=== PATIENT | male | born 1945 | race Caucasian/White ===

== ENCOUNTER → 2017-05-16 | Outpatient (CLI) | payer MEDICARE, OTHER ==
[2017-05-16 10:36] LABS: HEMATOCRIT 46.5 % (42.0-52.0); HEMOGLOBIN 14.8 g/dL (13.5-18.0); MEAN PLATELET VOLUME 9.6 fl (7.4-10.4); RED BLOOD COUNT 4.76 M/mm3 (4.20-5.60); RED CELL DISTRIBUTION WIDTH 13.8 % (11.5-14.5)
[2017-05-16 11:16] LABS: ALBUMIN 4.3 g/dL (3.5-5.0); BUN/CREATININE RATIO 19.9 (6.0-26.0); CALCIUM 9.6 mg/dL (8.4-10.2); POTASSIUM 4.2 mmol/L (3.6-5.0); TOTAL BILIRUBIN 0.4 mg/dL (0.2-1.3); TOTAL PROTEIN 7.6 g/dL (6.3-8.2)
== END ==
LOC: LAB 09:59
PROVIDERS: Family Medicine
DX: I25.10 Atherosclerotic heart disease of native coronary artery without angina pectoris (principal)

== ENCOUNTER → 2017-06-06 | Day surgery (SDC) | payer MEDICARE, OTHER | LOC: MSO 08:03 | DX: Z12.11 Encounter for screening for malignant neoplasm of colon (principal); D12.2 Benign neoplasm of ascending colon; K63.5 Polyp of colon; Z86.010 Personal history of colon polyps; Z80.0 Family history of malignant neoplasm of digestive organs; I10 Essential (primary) hypertension; F17.210 Nicotine dependence, cigarettes, uncomplicated; J44.9 Chronic obstructive pulmonary disease, unspecified | CPT/HCPCS: 00811; J2704; J7120 ==

== ENCOUNTER → 2017-09-13 | Outpatient (CLI) | payer MEDICARE, OTHER ==
[2017-09-13 10:12] LABS: BUN/CREATININE RATIO 17.2 (6.0-26.0); CALCIUM 9.5 mg/dL (8.4-10.2)
[2017-09-13 10:18] LABS: URINE APPEARANCE CLEAR; URINE BILIRUBIN NEGATIVE (NEGATIVE); URINE BLOOD NEGATIVE (NEGATIVE); URINE COLOR YELLOW; URINE GLUCOSE NEGATIVE (NEGATIVE); URINE KETONE NEGATIVE (NEGATIVE); URINE LEUKOCYTE ESTERASE NEGATIVE (NEGATIVE); URINE NITRATE NEGATIVE (NEGATIVE); URINE PROTEIN(semi-quant) TRACE mg/dL (NEGATIVE); URINE UROBILINOGEN NORMAL (NORMAL); URINE WBC 0-1 /hpf (0-3)
== END ==
LOC: LAB 09:42
PROVIDERS: Family Medicine
DX: M54.9 Dorsalgia, unspecified (principal); R35.0 Frequency of micturition; R10.9 Unspecified abdominal pain; N28.1 Cyst of kidney, acquired; M47.816 Spondylosis without myelopathy or radiculopathy, lumbar region
CPT/HCPCS: Q9967

== ENCOUNTER → 2017-12-14 | Outpatient (CLI) | payer MEDICARE, OTHER | LOC: RAD 13:02 | DX: M19.012 Primary osteoarthritis, left shoulder (principal) ==

== ENCOUNTER → 2017-12-21 | Outpatient (CLI) | payer MEDICARE, OTHER | LOC: RAD 08:10 | DX: S46.012A Strain of muscle(s) and tendon(s) of the rotator cuff of left shoulder, initial encounter (principal); M25.812 Other specified joint disorders, left shoulder ==

== ENCOUNTER → 2018-09-27 | Outpatient (CLI) | payer MEDICARE, OTHER ==
[2018-09-27 09:06] LABS: EOS # 0.5 (0.04-0.40); HEMATOCRIT 44.9 % (42.0-52.0); HEMOGLOBIN 14.3 g/dL (13.5-18.0); LYMPH# 1.4 (1.50-4.00); MEAN CELL VOLUME 99 fl (78-100); MEAN CORPUSCULAR HEMOGLOBIN 32 pg (27-31); MEAN CORPUSCULAR HGB CONC 32 g/dL (33-37); MEAN PLATELET VOLUME 9.2 fl (7.4-10.4); MONO # 0.8 (0.20-0.80); NEU # 4.6 (1.40-6.50); PLATELET COUNT 238 K/mm3 (130-400); RED BLOOD COUNT 4.54 M/mm3 (4.20-5.60); RED CELL DISTRIBUTION WIDTH 13.5 % (11.5-14.5); WHITE BLOOD COUNT 7.4 K/mm3 (4.8-10.8)
[2018-09-27 09:28] LABS: ALBUMIN 4.1 g/dL (3.4-4.8); POTASSIUM 4.1 mmol/L (3.5-5.1); TOTAL BILIRUBIN 0.4 mg/dL (0.2-1.2)
[2018-09-27 09:37] LABS: EOS % 6.4 % (0.0-4.0)
[2018-09-27 10:20] LABS: URINE APPEARANCE CLEAR; URINE BILIRUBIN NEGATIVE (NEGATIVE); URINE BLOOD NEGATIVE (NEGATIVE); URINE COLOR YELLOW; URINE GLUCOSE NEGATIVE (NEGATIVE); URINE KETONE NEGATIVE (NEGATIVE); URINE LEUKOCYTE ESTERASE NEGATIVE (NEGATIVE); URINE NITRATE NEGATIVE (NEGATIVE); URINE PROTEIN(semi-quant) TRACE mg/dL (NEGATIVE); URINE UROBILINOGEN NORMAL (NORMAL); URINE WBC 0-1 /hpf (0-3)
== END ==
LOC: LAB 08:41
PROVIDERS: Family Medicine
DX: Z00.00 Encounter for general adult medical examination without abnormal findings (principal); Z87.438 Personal history of other diseases of male genital organs

== ENCOUNTER → 2019-01-16 | Outpatient (CLI) | payer MEDICARE, OTHER ==
[2019-01-16 10:57] LABS: ALBUMIN 4.3 g/dL (3.4-4.8); POTASSIUM 4.3 mmol/L (3.5-5.1)
[2019-01-16 10:58] LABS: CALCIUM 10.1 mg/dL (8.3-10.5)
[2019-01-16 10:59] LABS: TOTAL PROTEIN 7.4 g/dL (6.2-8.1)
[2019-01-16 11:01] LABS: TOTAL BILIRUBIN 0.7 mg/dL (0.2-1.2)
[2019-01-16 11:16] LABS: EOS # 0.5 (0.04-0.40); EOS % 7.4 % (0.0-4.0); HEMATOCRIT 43.3 % (42.0-52.0); HEMOGLOBIN 14.2 g/dL (13.5-18.0); LYMPH# 1.7 (1.50-4.00); MEAN CELL VOLUME 97 fl (78-100); MEAN CORPUSCULAR HEMOGLOBIN 32 pg (27-31); MEAN CORPUSCULAR HGB CONC 33 g/dL (33-37); MEAN PLATELET VOLUME 9.6 fl (7.4-10.4); MONO # 0.9 (0.20-0.80); NEU # 4.1 (1.40-6.50); PLATELET COUNT 230 K/mm3 (130-400); RED BLOOD COUNT 4.46 M/mm3 (4.20-5.60); RED CELL DISTRIBUTION WIDTH 13.9 % (11.5-14.5); WHITE BLOOD COUNT 7.2 K/mm3 (4.8-10.8)
== END ==
LOC: LAB 10:39
PROVIDERS: Family Medicine
DX: R10.31 Right lower quadrant pain (principal)
CPT/HCPCS: Q9967

== ENCOUNTER 2019-02-10 08:59 | Emergency (ER) | payer MEDICARE, OTHER ==
[~2019-02-10] VITALS: Wt 88.4 kg
[2019-02-10] MEDS ORDERED: LEVOFLOXACIN500 M1 PO (09:11)
[2019-02-10] MEDS ORDERED: FLOMAX0.4 MG PO (09:11)
[2019-02-10] MEDS ORDERED: HYDROCHLOROTHIA1 T15 PO (09:11)
[2019-02-10] MEDS ORDERED: FISH OIL1 IU PO (09:11)
[2019-02-10 09:33] LABS: HEMOGLOBIN 14.2 g/dL (13.5-18.0); MEAN CELL VOLUME 98 fl (78-100); MEAN CORPUSCULAR HEMOGLOBIN 32 pg (27-31); MEAN CORPUSCULAR HGB CONC 33 g/dL (33-37); MEAN PLATELET VOLUME 9.7 fl (7.4-10.4); PLATELET COUNT 227 K/mm3 (130-400); RED BLOOD COUNT 4.39 M/mm3 (4.20-5.60); RED CELL DISTRIBUTION WIDTH 13.8 % (11.5-14.5); WHITE BLOOD COUNT 14.4 K/mm3 (4.8-10.8)
[2019-02-10 09:40] LABS: ALBUMIN 4.2 g/dL (3.4-4.8)
[2019-02-10 09:41] LABS: POTASSIUM 3.6 mmol/L (3.5-5.1)
[2019-02-10 09:42] LABS: CALCIUM 9.6 mg/dL (8.3-10.5)
[2019-02-10 09:43] LABS: TOTAL PROTEIN 7.4 g/dL (6.2-8.1)
[2019-02-10 09:45] LABS: TOTAL BILIRUBIN 0.6 mg/dL (0.2-1.2)
[2019-02-10 09:56] LABS: LYMPHOCYTE 9 % (20-51); MONOCYTE 7 % (3-10); NEUTROPHILS 84 % (42-75)
[2019-02-10 10:52] LABS: URINE COLOR YELLOW
[2019-02-10 10:53] LABS: URINE APPEARANCE HAZY; URINE BILIRUBIN NEGATIVE (NEGATIVE); URINE BLOOD TRACE (NEGATIVE); URINE GLUCOSE NEGATIVE (NEGATIVE); URINE KETONE NEGATIVE (NEGATIVE); URINE LEUKOCYTE ESTERASE TRACE (NEGATIVE); URINE NITRATE NEGATIVE (NEGATIVE); URINE PROTEIN(semi-quant) TRACE mg/dL (NEGATIVE); URINE UROBILINOGEN NORMAL (NORMAL)
[2019-02-10 10:54] LABS: URINE MUCUS PRESENT (NOT PRESENT)
[2019-02-10 13:07] VITALS: BP 132/76
== END 2019-02-10 13:00 | disposition other institution (70) ==
LOC: ED 08:59
PROVIDERS: Family Medicine
DX: K92.2 Gastrointestinal hemorrhage, unspecified (principal); I10 Essential (primary) hypertension; F17.210 Nicotine dependence, cigarettes, uncomplicated; Z90.49 Acquired absence of other specified parts of digestive tract; Z87.19 Personal history of other diseases of the digestive system
CPT/HCPCS: C9113; J3490; J7030

== ENCOUNTER 2019-02-10 12:42 | Inpatient (IN) | payer MEDICARE, OTHER ==
[~2019-02-10] VITALS: Ht 188 cm; Wt 88.5 kg
[~2019-02-10 12:42] MED LIST: FISH OIL1 IU PO; FLOMAX0.4 MG PO; HYDROCHLOROTHIA1 T15 PO; LEVOFLOXACIN500 M1 PO
[2019-02-10 13:00] VITALS: BP 132/76
[2019-02-10 13:07] VITALS: BP 132/76
[2019-02-10 16:00] VITALS: BP 125/75
[2019-02-10 17:21] VITALS: BP 125/75
[2019-02-10 18:25] VITALS: BP 123/73
== END 2019-02-10 19:34 | disposition short-term general hospital (02) | DRG 378 ==
LOC: MED/SURG 12:42
PROVIDERS: ADMIT Family Medicine
DX: K92.2 Gastrointestinal hemorrhage, unspecified (principal); A04.72 Enterocolitis due to Clostridium difficile, not specified as recurrent; I10 Essential (primary) hypertension; N40.1 Benign prostatic hyperplasia with lower urinary tract symptoms; R35.0 Frequency of micturition; R39.11 Hesitancy of micturition; R39.15 Urgency of urination; F17.210 Nicotine dependence, cigarettes, uncomplicated
CPT/HCPCS: J2270; J3480; Q9967

== ENCOUNTER → 2019-04-30 | Outpatient (CLI) | payer MEDICARE, OTHER | LOC: RAD 09:59 | DX: M47.812 Spondylosis without myelopathy or radiculopathy, cervical region (principal) ==

== ENCOUNTER → 2019-06-08 | Outpatient (CLI) | payer MEDICARE, OTHER | LOC: RAD 11:40 | DX: J44.9 Chronic obstructive pulmonary disease, unspecified (principal) ==

== ENCOUNTER → 2019-07-04 | Outpatient (CLI) | payer MEDICARE, OTHER | LOC: RAD 09:23 | DX: K57.92 Diverticulitis of intestine, part unspecified, without perforation or abscess without bleeding (principal) ==

== ENCOUNTER → 2019-10-22 | Outpatient (CLI) | payer MEDICARE, OTHER ==
[2019-10-22 10:16] LABS: EOS # 0.5 (0.04-0.40); HEMATOCRIT 44.5 % (42.0-52.0); HEMOGLOBIN 14.3 g/dL (13.5-18.0); LYMPH# 1.5 (1.50-4.00); MEAN CELL VOLUME 97 fl (78-100); MEAN CORPUSCULAR HEMOGLOBIN 31 pg (27-31); MEAN CORPUSCULAR HGB CONC 32 g/dL (33-37); MEAN PLATELET VOLUME 9.2 fl (7.4-10.4); MONO # 0.9 (0.20-0.80); PLATELET COUNT 231 K/mm3 (130-400); RED BLOOD COUNT 4.59 M/mm3 (4.20-5.60); RED CELL DISTRIBUTION WIDTH 13.1 % (11.5-14.5); WHITE BLOOD COUNT 8.9 K/mm3 (4.8-10.8)
[2019-10-22 10:22] LABS: ALBUMIN 4.2 g/dL (3.4-4.8); EOS % 5.9 % (0.0-4.0); POTASSIUM 4.5 mmol/L (3.5-5.1)
[2019-10-22 10:23] LABS: CALCIUM 9.7 mg/dL (8.3-10.5)
[2019-10-22 10:25] LABS: TOTAL PROTEIN 6.9 g/dL (6.2-8.1)
[2019-10-22 10:27] LABS: TOTAL BILIRUBIN 0.6 mg/dL (0.2-1.2)
== END ==
LOC: LAB 09:56
PROVIDERS: Family Medicine
DX: Z00.00 Encounter for general adult medical examination without abnormal findings (principal); E78.5 Hyperlipidemia, unspecified

== ENCOUNTER 2020-01-23 09:00 | Outpatient (RCR) | payer MEDICARE, OTHER | END 2020-01-23 09:30 | disposition still patient (30) | LOC: PT 09:00 | DX: M25.511 Pain in right shoulder (principal); M25.512 Pain in left shoulder ==

== ENCOUNTER → 2020-05-09 | Outpatient (CLI) | payer MEDICARE, OTHER ==
[2020-05-09 10:59] LABS: ALBUMIN 4.2 g/dL (3.4-4.8); POTASSIUM 4.2 mmol/L (3.5-5.1); SODIUM 139 mmol/L (136-145)
[2020-05-09 11:01] LABS: CALCIUM 9.5 mg/dL (8.3-10.5)
[2020-05-09 11:02] LABS: EOS # 0.5 (0.04-0.40); EOS % 7.3 % (0.0-4.0); GLUCOSE 96 mg/dL (75-110); HEMATOCRIT 41.9 % (42.0-52.0); HEMOGLOBIN 13.3 g/dL (13.5-18.0); LYMPH# 1.3 (1.50-4.00); MEAN CELL VOLUME 99 fl (78-100); MEAN CORPUSCULAR HEMOGLOBIN 32 pg (27-31); MEAN CORPUSCULAR HGB CONC 32 g/dL (33-37); MEAN PLATELET VOLUME 9.6 fl (7.4-10.4); MONO # 0.7 (0.20-0.80); NEU # 4.4 (1.40-6.50); PLATELET COUNT 221 K/mm3 (130-400); RED BLOOD COUNT 4.22 M/mm3 (4.20-5.60); RED CELL DISTRIBUTION WIDTH 12.8 % (11.5-14.5); TOTAL PROTEIN 6.9 g/dL (6.2-8.1)
[2020-05-09 11:03] LABS: CARBON DIOXIDE 27 mmol/L (23-31)
[2020-05-09 11:04] LABS: TOTAL BILIRUBIN 0.9 mg/dL (0.2-1.2)
[2020-05-09 11:07] LABS: AST-SGOT 18 U/L (5-34)
[2020-05-09 11:08] LABS: ALT/SGPT 17 U/L (0-55)
--- NOTE | 2020-05-09 11:10 | NUR ---
PEAKED T WAVES NOTED ON EKG. THIS RN TAKES EKG TO DR. HOPKINS, DR. HOPKINS REVIEWS EKG AND STATES THAT THE PT CAN GO HOME AND THAT SHE WILL CALL HIM WITH LAB RESULTS. A RED PATCHY, BLISTERY, LINEAR RASH IS NOTED TO THE RIGHT UPPER CHEST, THIS IS REPORTED TO DR. HOPKINS, WELL.
[2020-05-09 11:23] LABS: TROPONIN-I < 0.03 ng/mL (<0.030)
== END ==
LOC: AMSURD 10:30 → EDSTATUS 10:32
PROVIDERS: Family Medicine
DX: R07.9 Chest pain, unspecified (principal); R00.1 Bradycardia, unspecified

== ENCOUNTER → 2020-08-18 | Day surgery (SDC) | payer MEDICARE, OTHER | END | disposition home or self-care (01) | LOC: MSO 08:24 | DX: Z12.11 Encounter for screening for malignant neoplasm of colon (principal); K63.5 Polyp of colon; Z83.71 Family history of colonic polyps; I12.9 Hypertensive chronic kidney disease with stage 1 through stage 4 chronic kidney disease, or unspecified chronic kidney disease; N18.1 Chronic kidney disease, stage 1; F17.210 Nicotine dependence, cigarettes, uncomplicated; J44.9 Chronic obstructive pulmonary disease, unspecified; Z79.899 Other long term (current) drug therapy | CPT/HCPCS: 00811; J2704; J3010; J7120 ==

== ENCOUNTER → 2020-11-10 | Outpatient (CLI) | payer MEDICARE, OTHER | LOC: RAD 08:38 | DX: N50.3 Cyst of epididymis (principal) ==

== ENCOUNTER → 2021-07-10 | Outpatient (CLI) | payer MEDICARE, OTHER ==
[2021-07-10 11:27] LABS: BASO # 0.01 K/mm3 (0.02-0.10); EOS # 0.38 K/mm3 (0.04-0.40); EOS % 5.7 % (0.0-4.0); HEMATOCRIT 40.5 % (42.0-52.0); HEMOGLOBIN 13.2 g/dL (13.5-18.0); MEAN CELL VOLUME 97 fl (78-100); MEAN CORPUSCULAR HEMOGLOBIN 32 pg (27-31); MEAN CORPUSCULAR HGB CONC 33 g/dL (33-37); MEAN PLATELET VOLUME 9.5 fl (7.4-10.4); MONO # 0.71 K/mm3 (0.20-0.80); PLATELET COUNT 243 K/mm3 (130-400); RED BLOOD COUNT 4.19 M/mm3 (4.20-5.60); RED CELL DISTRIBUTION WIDTH 12.8 % (11.5-14.5); WHITE BLOOD COUNT 6.7 K/mm3 (4.8-10.8)
[2021-07-10 11:34] LABS: ALBUMIN 4.1 g/dL (3.4-4.8); POTASSIUM 4.3 mmol/L (3.5-5.1)
[2021-07-10 11:35] LABS: CALCIUM 9.9 mg/dL (8.3-10.5)
[2021-07-10 11:36] LABS: TOTAL PROTEIN 6.7 g/dL (6.2-8.1)
[2021-07-10 11:38] LABS: TOTAL BILIRUBIN 0.7 mg/dL (0.2-1.2)
== END ==
LOC: LAB 10:43
PROVIDERS: Family Medicine
DX: Z00.00 Encounter for general adult medical examination without abnormal findings (principal); I10 Essential (primary) hypertension; E78.5 Hyperlipidemia, unspecified; N40.0 Benign prostatic hyperplasia without lower urinary tract symptoms; M25.512 Pain in left shoulder; N18.1 Chronic kidney disease, stage 1; J44.9 Chronic obstructive pulmonary disease, unspecified; I25.10 Atherosclerotic heart disease of native coronary artery without angina pectoris; M19.90 Unspecified osteoarthritis, unspecified site; E66.3 Overweight; Z72.0 Tobacco use

== ENCOUNTER → 2021-09-15 | Outpatient (CLI) | payer MEDICARE, OTHER ==
[2021-09-15 08:09] LABS: BASO # 0.01 K/mm3 (0.02-0.10); EOS # 0.04 K/mm3 (0.04-0.40); EOS % 0.4 % (0.0-4.0); HEMATOCRIT 40.7 % (42.0-52.0); HEMOGLOBIN 13.1 g/dL (13.5-18.0); LYMPH# 1.92 K/mm3 (1.50-4.00); MEAN CELL VOLUME 98 fl (78-100); MEAN CORPUSCULAR HEMOGLOBIN 31 pg (27-31); MEAN CORPUSCULAR HGB CONC 32 g/dL (33-37); MEAN PLATELET VOLUME 9.4 fl (7.4-10.4); MONO # 1.22 K/mm3 (0.20-0.80); NEU # 6.46 K/mm3 (1.40-6.50); PLATELET COUNT 244 K/mm3 (130-400); RED BLOOD COUNT 4.17 M/mm3 (4.20-5.60); RED CELL DISTRIBUTION WIDTH 12.8 % (11.5-14.5)
[2021-09-15 08:37] LABS: ALBUMIN 4.1 g/dL (3.4-4.8); POTASSIUM 3.7 mmol/L (3.5-5.1)
[2021-09-15 08:40] LABS: TOTAL PROTEIN 6.8 g/dL (6.2-8.1)
[2021-09-15 08:42] LABS: TOTAL BILIRUBIN 0.5 mg/dL (0.2-1.2)
== END ==
LOC: RAD 07:53
PROVIDERS: Family Medicine
DX: Z00.00 Encounter for general adult medical examination without abnormal findings (principal); R42 Dizziness and giddiness
CPT/HCPCS: Q9967

== ENCOUNTER → 2021-10-06 | Outpatient (CLI) | payer MEDICARE, OTHER | LOC: LAB 16:19 | DX: R06.00 Dyspnea, unspecified (principal); I12.9 Hypertensive chronic kidney disease with stage 1 through stage 4 chronic kidney disease, or unspecified chronic kidney disease; N18.1 Chronic kidney disease, stage 1; N40.0 Benign prostatic hyperplasia without lower urinary tract symptoms; J44.9 Chronic obstructive pulmonary disease, unspecified; I25.10 Atherosclerotic heart disease of native coronary artery without angina pectoris; E78.5 Hyperlipidemia, unspecified; M19.90 Unspecified osteoarthritis, unspecified site; E66.3 Overweight; Z72.0 Tobacco use ==

== ENCOUNTER → 2022-04-06 | Outpatient (CLI) | payer MEDICARE, OTHER | LOC: RAD 12:49 | DX: M19.012 Primary osteoarthritis, left shoulder (principal) ==

== ENCOUNTER → 2023-02-07 | Outpatient (CLI) | payer MEDICARE, OTHER ==
[2023-02-07 13:11] LABS: BASO # 0.01 K/mm3 (0.02-0.10); EOS % 8.7 % (0.0-4.0); HEMATOCRIT 36.7 % (42.0-52.0); HEMOGLOBIN 11.8 g/dL (13.5-18.0); LYMPH# 0.95 K/mm3 (1.50-4.00); MEAN CELL VOLUME 98 fl (78-100); MEAN CORPUSCULAR HEMOGLOBIN 32 pg (27-31); MEAN CORPUSCULAR HGB CONC 32 g/dL (33-37); MEAN PLATELET VOLUME 9.6 fl (7.4-10.4); MONO # 0.51 K/mm3 (0.20-0.80); NEU # 2.67 K/mm3 (1.40-6.50); PLATELET COUNT 191 K/mm3 (130-400); RED BLOOD COUNT 3.75 M/mm3 (4.20-5.60); WHITE BLOOD COUNT 4.6 K/mm3 (4.8-10.8)
[2023-02-07 13:16] LABS: ALBUMIN 4.1 g/dL (3.4-4.8)
[2023-02-07 13:17] LABS: POTASSIUM 4.2 mmol/L (3.5-5.1)
[2023-02-07 13:18] LABS: CALCIUM 9.8 mg/dL (8.3-10.5)
[2023-02-07 13:19] LABS: TOTAL PROTEIN 6.7 g/dL (6.2-8.1)
[2023-02-07 13:21] LABS: TOTAL BILIRUBIN 0.6 mg/dL (0.2-1.2)
[2023-02-07 13:28] LABS: PROTHROMBIN TIME 10.8 SECONDS (9.0-12.0)
[2023-02-07 14:43] LABS: URINE APPEARANCE HAZY; URINE BILIRUBIN NEGATIVE (NEGATIVE); URINE BLOOD TRACE (NEGATIVE); URINE COLOR YELLOW; URINE GLUCOSE NEGATIVE (NEGATIVE); URINE KETONE NEGATIVE (NEGATIVE); URINE LEUKOCYTE ESTERASE NEGATIVE (NEGATIVE); URINE NITRATE NEGATIVE (NEGATIVE); URINE PROTEIN(semi-quant) NEGATIVE (NEGATIVE); URINE UROBILINOGEN NORMAL (NORMAL)
[2023-02-07 14:44] LABS: URINE MUCUS PRESENT (NOT PRESENT)
== END ==
LOC: LAB 12:50
PROVIDERS: Nurse Practitioner
DX: Z01.818 Encounter for other preprocedural examination (principal)

== ENCOUNTER 2023-03-16 08:22 | Outpatient (RCR) | payer MEDICARE, OTHER | END 2023-03-24 | disposition home or self-care (01) | LOC: PT | DX: Z96.612 Presence of left artificial shoulder joint (principal) ==

== ENCOUNTER 2023-03-25 08:00 | Outpatient (RCR) | payer MEDICARE, OTHER | END 2023-04-24 | disposition home or self-care (01) | LOC: PT | DX: Z96.612 Presence of left artificial shoulder joint (principal) ==

== ENCOUNTER 2023-04-25 08:00 | Outpatient (RCR) | payer MEDICARE, OTHER | END 2023-05-25 | disposition home or self-care (01) | LOC: PT | DX: Z96.612 Presence of left artificial shoulder joint (principal) ==

== ENCOUNTER 2023-05-26 08:10 | Outpatient (RCR) | payer MEDICARE, OTHER | END 2023-06-23 | disposition home or self-care (01) | LOC: PT | DX: Z96.612 Presence of left artificial shoulder joint (principal) ==

== ENCOUNTER → 2023-12-30 | Outpatient (CLI) | payer MEDICARE, OTHER ==
[2023-12-30 08:16] LABS: ALBUMIN 4.2 g/dL (3.4-4.8)
[2023-12-30 08:18] LABS: CALCIUM 9.8 mg/dL (8.3-10.5)
== END ==
LOC: LAB 07:39
PROVIDERS: Internal Medicine Nephrology
DX: I12.9 Hypertensive chronic kidney disease with stage 1 through stage 4 chronic kidney disease, or unspecified chronic kidney disease (principal); N18.31 Chronic kidney disease, stage 3a

== ENCOUNTER → 2024-07-18 | Outpatient (CLI) | payer MEDICARE, OTHER ==
[~2024-07-18] MED LIST changes: +ATORVASTATIN CA80 MG PO; +CLOPIDOGREL75 M2 PO; +FLUTICASONE PRO12 G1 IH; +LISINOPRIL30 MG PO
[2024-07-18 09:48] LABS: HEMATOCRIT 40.6 % (42.0-52.0); MEAN PLATELET VOLUME 9.3 fl (7.4-10.4); RED BLOOD COUNT 4.1 M/mm3 (4.20-5.60); WHITE BLOOD COUNT 5.5 K/mm3 (4.8-10.8)
[2024-07-18 09:53] LABS: ALBUMIN 4.1 g/dL (3.4-4.8); SODIUM 141 mmol/L (136-145)
[2024-07-18 09:55] LABS: CALCIUM 9.9 mg/dL (8.3-10.5)
[2024-07-18 09:56] LABS: GLUCOSE 141 mg/dL (75-110); TOTAL PROTEIN 6.8 g/dL (6.2-8.1)
[2024-07-18 09:57] LABS: CARBON DIOXIDE 26 mmol/L (23-31)
[2024-07-18 09:58] LABS: TOTAL BILIRUBIN 0.7 mg/dL (0.2-1.2)
[2024-07-18 10:01] LABS: AST-SGOT 21 U/L (5-34)
[2024-07-18 10:02] LABS: ALT/SGPT 21 U/L (0-55)
[2024-07-18 10:09] LABS: TROPONIN-I < 0.030 ng/mL (0.00-0.033)
== END ==
LOC: LAB 09:25
DX: R06.02 Shortness of breath (principal); R53.83 Other fatigue